=== PATIENT | female | born 1985 | race Caucasian/White ===

== ENCOUNTER 2017-10-11 08:27 | Day surgery (SDC) | payer OTHER ==
[~2017-10-11] VITALS: Ht 165.1 cm; Wt 84.9 kg
[~2017-10-11 08:27] MED LIST: AMIT25 PO; BIRTH CONTROL; CEPH500 PO; Crutch1 EACH MISC; IBUP600 PO; KETO10 PO; METCAR750 PO; PARO30 PO; Percocet 5-3251 EACH PO; Sudogest30 MG PO; Ultram50 MG PO; Zofran Odt4 MG PO; Zofran Odt4 MG SL
[2017-10-11] MEDS ORDERED: ALBU90OI (08:51)
== END 2017-10-11 12:45 | disposition home or self-care (01) ==
LOC: ORSCSDS 08:27
PROVIDERS: Obstetrics & Gynecology
PROC: 0UT74ZZ Resection of Bilateral Fallopian Tubes, Percutaneous Endoscopic Approach (ICD-10-PCS; principal; 2017-10-11 10:00)
DX: Z30.2 Encounter for sterilization (principal); Z87.891 Personal history of nicotine dependence
CPT/HCPCS: 88302; J0171; J0330; J1100; J1885; J2250; J2405; J2765; J3010

== ENCOUNTER → 2017-11-12 | Outpatient (CLI) | payer OTHER ==
[~2017-11-12] MED LIST changes: +ALBU90OI
[2017-11-12 12:16] LABS: Source, Urine Clean Catch
[2017-11-12 13:01] LABS: Bilirubin, Urine Neg (Neg); Blood, Urine 3+ (Neg); Glucose Qualitative, Urine Neg (Neg); Ketones, Urine Neg (Neg); Leukocyte Esterase, Urine 3+ (Neg); Nitrite, Urine Neg (Neg); Protein, Urine 1+ (Neg); Urobilinogen, Urine NORM (Normal)
[2017-11-12 13:25] LABS: Appearance, Urine Hazy (Clear); Color, Urine Yellow (P-Yellow)
[2017-11-12 13:26] LABS: Squamous Epithelial Cells Few /hpf (Few); White Blood Cells, Urine TNTC /hpf (0-5)
[2017-11-12 13:27] LABS: Bacteria Mod /hpf
== END ==
LOC: LAB SHORT 09:30 → LAB 09:30
PROVIDERS: Obstetrics & Gynecology
DX: R35.0 Frequency of micturition (principal); R30.0 Dysuria
CPT/HCPCS: 81001; 87077; 87086; 87186